=== PATIENT | female | born 1950 | race Caucasian/White ===

== ENCOUNTER → 2016-10-08 | Outpatient (CLI) | payer BC, MEDICARE ==
[~2016-10-08] MED LIST: NO HOME MEDICATIONS
== END ==
LOC: MC.RAD 14:04
DX: Z12.31 Encounter for screening mammogram for malignant neoplasm of breast (principal); R92.1 Mammographic calcification found on diagnostic imaging of breast

== ENCOUNTER 2017-07-30 08:16 | Day surgery (SDC) | payer BC ==
[~2017-07-30] VITALS: Ht 167.6 cm; Wt 77.3 kg
[2017-07-30] MEDS ORDERED: CALCIUM CARBON650 M2 PO (08:43)
[2017-07-30] MEDS ORDERED: FOSAMAX 70MG TA70 MG PO (08:43)
[2017-07-30] MEDS ORDERED: MASON NATURAL1200 MG PO (08:44)
[2017-07-30] MEDS ORDERED: VITAMIN D 1001000 IU PO (08:44)
[2017-07-30] MEDS ORDERED: B-121000 MCG PO (08:45)
[2017-07-30 08:55] VITALS: BP 119/82; PULSE 74; TEMP 98.3
[2017-07-30 10:05] VITALS: BP 109/67; PULSE 66; TEMP 97.5
[2017-07-30 10:20] VITALS: BP 101/66; PULSE 67
[2017-07-30 10:35] VITALS: BP 97/67; PULSE 65
[2017-07-30 14:59] VITALS: BP 93/55; PULSE 61
== END 2017-07-30 10:55 | disposition home or self-care (01) ==
LOC: SDCO 08:16
DX: Z12.11 Encounter for screening for malignant neoplasm of colon (principal); Z86.010 Personal history of colon polyps; K57.30 Diverticulosis of large intestine without perforation or abscess without bleeding; K64.0 First degree hemorrhoids
CPT/HCPCS: OP; J2250; J3010; J7030

== ENCOUNTER → 2017-10-10 | Outpatient (CLI) | payer BC ==
[~2017-10-10] MED LIST changes: +B-121000 MCG PO; +CALCIUM CARBON650 M2 PO; +FOSAMAX 70MG TA70 MG PO; +MASON NATURAL1200 MG PO; +VITAMIN D 1001000 IU PO
== END ==
LOC: MC.RAD 13:08
DX: Z12.31 Encounter for screening mammogram for malignant neoplasm of breast (principal)

== ENCOUNTER → 2018-10-27 | Outpatient (CLI) | payer MEDICARE, OTHER | LOC: MC.RAD 13:46 | DX: Z12.31 Encounter for screening mammogram for malignant neoplasm of breast (principal) ==

== ENCOUNTER → 2019-11-09 | Outpatient (CLI) | payer MEDICARE | LOC: MC.RAD 14:52 | DX: Z12.31 Encounter for screening mammogram for malignant neoplasm of breast (principal) ==

== ENCOUNTER → 2020-11-11 | Outpatient (CLI) | payer MEDICARE | LOC: MC.RAD 13:19 | DX: Z12.31 Encounter for screening mammogram for malignant neoplasm of breast (principal); Z98.890 Other specified postprocedural states ==

== ENCOUNTER → 2021-12-05 | Outpatient (CLI) | payer MEDICARE | LOC: MC.RAD 12:47 | DX: Z12.31 Encounter for screening mammogram for malignant neoplasm of breast (principal) ==

== ENCOUNTER → 2022-12-07 | Outpatient (CLI) | payer MEDICARE | LOC: MC.RAD 14:17 | DX: Z12.31 Encounter for screening mammogram for malignant neoplasm of breast (principal) ==

== ENCOUNTER 2023-01-13 19:56 | Emergency (ER) | payer MEDICARE ==
[~2023-01-13] VITALS: Ht 165.1 cm; Wt 76.4 kg
[2023-01-13 20:04] VITALS: TEMP 97.8
[2023-01-13] MEDS ORDERED: OMNICEF 300MG300 MG PO (23:36)
[2023-01-14 00:13] VITALS: BP 136/76; PULSE 86
== END 2023-01-14 00:57 | disposition home or self-care (01) ==
LOC: COL.ER 19:56
DX: S61.355A Open bite of left ring finger with damage to nail, initial encounter (principal); W55.11XA Bitten by horse, initial encounter

== ENCOUNTER → 2023-12-26 | Outpatient (CLI) | payer MEDICARE, OTHER ==
[~2023-12-26] MED LIST changes: +OMNICEF 300MG300 MG PO
== END ==
LOC: MC.RAD 10:41
DX: Z12.31 Encounter for screening mammogram for malignant neoplasm of breast (principal)